=== PATIENT | male | born 1945 | race Caucasian/White ===

== ENCOUNTER 2017-05-09 09:44 | Inpatient (IN) | payer MEDICARE ==
[2017-05-09 10:12] LABS: #Basophils 0.1 thou/uL (0.0-0.2); #Eosinphils 0.2 thou/uL (0.0-0.7); #Lymphocytes 2.9 thou/uL (1.20-3.40); #Monocytes 0.4 thou/uL (0.11-0.59); #Neutrophils 4.6 thou/uL (1.40-6.50); %Basophils 0.7 % (0.0-1.0); %Eosinophils 1.9 % (0.0-10.0); %Lymphocytes 35.7 % (21.0-51.0); %Monocytes 4.9 % (0.0-10.0); Hematocrit 49.6 % (42.0-52.0); Mean Platelet Volume 7.4 fL (7.4-10.4); Red Blood Cell (RBC) Count 5.14 mill/uL (4.70-6.10); White Blood Cell (WBC) Count 8.1 thou/uL (4.8-10.8)
[2017-05-09 10:43] LABS: ALT (SGPT) 28 U/L (8-55); AST (SGOT) 28 U/L (5-34); Alkaline Phosphatase 64 U/L (40-150); Anion Gap 14 mmol/L (10-20); BUN (Urea Nitrogen) 20 mg/dL (8.4-25.7); Bilirubin, Total 0.9 mg/dL (0.2-1.2); CK (CPK) 309 U/L (30-200); Calc. Creatinine Clearance 0 mL/min (70-130); Carbon Dioxide 26 mmol/L (23-31); Chloride 101 mmol/L (98-107); Estimated GFR-MDRD 61; Globulin 3.4 g/dL (2.4-3.5); Lipase 34 U/L (8-78); Protein, Total 7.4 g/dL (5.8-8.1)
[2017-05-09 10:49] LABS: Troponin I 0.012 ng/mL (< 0.028)
--- NOTE | 2017-05-09 11:12 | RAD ---
UPRIGHT PORTABLE CHEST 1 VIEW: Date: 05/09/17 HISTORY: 72-year-old male with chest pain. FINDINGS: Borderline heart size. The lungs are clear. No pneumonia, edema, or pleural effusion. Bronchovascula r markings are slightly prominent bilaterally, probably chronic change. IMPRESSION: Borderline cardiomegaly with some scattered chronic changes. No acute intrathoracic disease. POS: [facility]
[2017-05-09] MEDS ORDERED: Dextrose 50% Abboject 50 ML SYRINGE SLOW IVP PRN (12:24)
[2017-05-09] MEDS ORDERED: Ondansetron HCl/PF 4 MG/2 ML Vial IVP PRN (12:24)
[2017-05-09] MEDS ORDERED: Mag-Al 1200 mg/1200 mg/30 ML UDCUP PO PRN (12:24)
[2017-05-09] MEDS ORDERED: Senokot 8.6 MG TAB PO PRN (12:24)
[2017-05-09] MEDS ORDERED: Dextrose 5% in Water 1,000 ML IV PRN (12:24)
[2017-05-09] MEDS ORDERED: Sodium Chloride 0.9% 1,000 ML IV SCH (12:30)
--- NOTE | 2017-05-09 13:06 | HP ---
REASON FOR ADMISSION: Chest pain. HISTORY OF PRESENTING ILLNESS: Patient gives history of having chest pains from last 2 weeks off and on. It was retrosternal pain radiating to left upper extremity. These were coming on irrespective of exertion. They would last for few minutes and go away. This morning, patient developed continuous chest pain which was 7-8/10 in intensity. He initially thought this was stress related, took 600 mg of aspirin. There was no relief. No complaints of cough or expectoration. No complaints of palpitations, PND or orthopnea. The patient is active in life. He states he has had a treadmill stress test done in Dr. Issac Polanco' office in the last 6 months or so. PAST MEDICAL AND SURGICAL HISTORY: History of diabetes mellitus type 2, hypertension, gout, glaucoma, and dyslipidemia. CURRENT MEDICATIONS: Patient is on aspirin 81 mg p.o. daily, indomethacin 50 mg twice daily p.r.n., Toprol-XL 100 mg p.o. daily, lisinopril 20 mg p.o. daily , allopurinol 100 mg p.o. daily, Lantus 60 units subcu daily, latanoprost eyedrops 1 GTT to both eyes at bedtime, Farxiga 5 mg p.o. daily, atorvastatin 40 mg p.o. at bedtime. ALLERGIES: No known drug allergies. PERSONAL HISTORY: Does not abuse alcohol or drugs. Quit smoking 30 years ago. FAMILY HISTORY: Mother is living and healthy. Father at the age of 94 years. He of old age. REVIEW OF SYSTEMS: The following complete review of systems was negative, unless otherwise mentioned in the HPI or below: Constitutional: Weight loss or gain, ability to conduct usual activities. Skin: Rash, itching. Eyes: Double vision, pain. ENT/Mouth: Nose bleeding, neck stiffness, pain, tenderness. Cardiovascular: Palpitations, dyspnea on exertion, orthopnea. Respiratory: Shortness of breath, wheezing, cough, hemoptysis, fever or night sweats. Gastrointestinal: Poor appetite, abdominal pain, heartburn, nausea, vomiting, constipation, or diarrhea. Genitourinary: Urgency, frequency, dysuria, nocturia. Musculoskeletal: Pain, swelling. Neurologic/Psychiatric: Anxiety, depression. Allergy/Immunologic: Skin rash, bleeding tendency. PHYSICAL EXAMINATION: GENERAL: The patient is a 72-year-old male who is currently not in any acute distress. VITAL SIGNS: Blood pressure on arrival was 180/86, currently 146/84, pulse 50 per minute, respiratory rate 20 per minute, temperature 97.8 degrees Fahrenheit , and saturating 97% on room air. NECK: Supple, no elevated JVD. EYES: Extraocular muscles intact. Pupils reacting to light. ORAL CAVITY: Mucous membranes are moist. No exudates or congestion. CARDIOVASCULAR SYSTEM: S1, S2 heard. Regular rhythm. RESPIRATORY SYSTEM: Air entry 2+ bilateral. No rales or rhonchi. ABDOMEN: Soft, bowel sounds heard. No tenderness, rigidity or guarding. EXTREMITIES: No peripheral edema or calf tenderness. VASCULAR SYSTEM: Peripheral pulses 1+ bilateral. No ischemic ulcerations or gangrene. CENTRAL NERVOUS SYSTEM: No gross focal deficits seen. Patient is alert, awake , oriented x3. PSYCHIATRIC SYSTEM: The patient's mood is euthymic. No hallucinations or delusions. IMAGING AND LABORATORY DATA: EKG done shows sinus bradycardia at 56 beats per minute. There are signs of LVH. There are questionable Q-waves in V1 and V2. White count of 8, hemoglobin and hematocrit 16 and 49, platelet count 219, MCV is 96 with 56% neutrophils. Electrolytes are stable. BUN 20, creatinine 1.1, and glucose 249. CK level is 309, CK-MB 7.4, troponin 0.01. BNP is 18, lipase is 34. Chest x-ray done shows borderline cardiomegaly with no acute infiltrate. CLINICAL IMPRESSION AND PLAN: The patient will be under observation on telemetry for chest pain, rule out acute coronary syndrome. The patient has multiple risk factors for acute coronary syndrome. He has had a treadmill stress test done 6 months back. I spoke to Dr. Rodriguez regarding the patient's current symptoms and his previous stress test. The plan is for a nuclear stress test plus 2 more sets of troponin to trend. He will be kept n.p.o. and normal saline at 70 mL per hour. We will also obtain echo with 2D Doppler for LV function. Likely patient needs a 2-day stress test. We will continue him on full dose aspirin along with Lipitor and a small dose of Lopressor since he is bradycardic and lisinopril 10 mg twice daily and nitro paste half inch q.8 hourly as well. Echo with 2D Doppler for LV function. We will continue to closely monitor him for any hemodynamic compromise. [email or web address]
[2017-05-09 13:22] LABS: Troponin I 0.075 ng/mL (< 0.028)
[2017-05-09] MEDS: Sodium Chloride 0.9% 1,000 ML IV SCH (13:56)
[2017-05-09] MEDS: Nitroglycerin 2% Ointment 1 INCH/1 GM Packet TOP SCH ×2 (13:57→20:22)
[2017-05-09 16:33] LABS: Troponin I 0.665 ng/mL (< 0.028)
[2017-05-09] MEDS: Atorvastatin Calcium 40 MG TAB PO SCH (20:13)
[2017-05-09] MEDS: Metoprolol Tartrate 25 MG TAB PO SCH (20:13)
[2017-05-09] MEDS: Famotidine 20 MG TAB PO SCH (20:13)
[2017-05-09] MEDS: Lisinopril 10 MG TAB PO SCH (20:15)
[2017-05-09] MEDS: HumaLOG 300 UNITS/3 ML VIAL SC PRN (20:28)
[2017-05-09] MEDS: Insulin Detemir 100 UNITS/ML 30 UNITS in Pre-Filled Syringe 1 EACH SC SCH (20:52)
[2017-05-10 04:30] LABS: #Eosinphils 0.1 thou/uL (0.0-0.7); #Lymphocytes 3.1 thou/uL (1.20-3.40); #Monocytes 0.8 thou/uL (0.11-0.59); #Neutrophils 8.6 thou/uL (1.40-6.50); %Basophils 0.4 % (0.0-1.0); %Eosinophils 0.7 % (0.0-10.0); %Lymphocytes 24.2 % (21.0-51.0); %Monocytes 6.6 % (0.0-10.0); Hematocrit 41.1 % (42.0-52.0); Mean Platelet Volume 7.6 fL (7.4-10.4); Red Blood Cell (RBC) Count 4.25 mill/uL (4.70-6.10); White Blood Cell (WBC) Count 12.6 thou/uL (4.8-10.8)
[2017-05-10 04:44] LABS: ALT (SGPT) 26 U/L (8-55); AST (SGOT) 71 U/L (5-34); Alkaline Phosphatase 52 U/L (40-150); Anion Gap 12 mmol/L (10-20); BUN (Urea Nitrogen) 17 mg/dL (8.4-25.7); Bilirubin, Total 0.8 mg/dL (0.2-1.2); Calc. Creatinine Clearance 99 mL/min (70-130); Carbon Dioxide 26 mmol/L (23-31); Chloride 103 mmol/L (98-107); Cholesterol 123 mg/dl (< 200 Desired); Estimated GFR-MDRD 73; Globulin 2.7 g/dL (2.4-3.5); LDL Cholesterol, Calculated 70 mg/dL; Protein, Total 6.3 g/dL (5.8-8.1)
[2017-05-10] MEDS: Nitroglycerin 2% Ointment 1 INCH/1 GM Packet TOP SCH ×3 (07:17→21:30)
[2017-05-10] MEDS ORDERED: Nitroglycerin 100MG/250ML BOT 250 ML ONE (09:23)
[2017-05-10] MEDS ORDERED: Verapamil 5 MG/2 ML VIAL ONE (09:24)
[2017-05-10] MEDS ORDERED: Heparin 10,000 UNITS/1 ML VIAL ONE (09:24)
[2017-05-10] MEDS: Aspirin 325 MG TAB PO SCH (10:37)
[2017-05-10] MEDS: Enoxaparin Sodium 40 MG/0.4 ML SYRINGE SC SCH (10:37)
[2017-05-10] MEDS ORDERED: Fentanyl 100 MCG/2 ML VIAL ONE (10:41)
[2017-05-10] MEDS ORDERED: Midazolam HCl 2 mg/2 ml Vial ONE (10:41)
[2017-05-10] MEDS ORDERED: Nitroglycerin 0.4 MG TAB (25 Tab Bottle) SL PRN (10:59)
[2017-05-10] MEDS ORDERED: traMADol HCl 50 MG TAB PO PRN (10:59)
[2017-05-10] MEDS ORDERED: Acetaminophen/Codeine 30-300mg Tablet PO PRN ×2 (10:59)
[2017-05-10] MEDS ORDERED: Sodium Chloride 0.9% 200 ML IV SCH (11:00)
--- NOTE | 2017-05-10 11:32 | NM ---
NUCLEAR MEDICINE CARDIAC GATED REST ONLY STUDY: Date: 05/09/17 HISTORY: Chest pain. Rest only study. COMPARISON: None. TECHNIQUE: Rest only study was performed after the intravenous administration of 27 mCi technetium-99m sestamib i. Ejection fraction was not calculated. Wall motion was not interrogated. There is a large scar of the inferior wall extending from the base to the apex. IMPRESSION: Large inferior wall scar. POS: [facility]
[2017-05-10] MEDS: Lisinopril 10 MG TAB PO SCH ×2 (11:34→20:14)
[2017-05-10] MEDS: Famotidine 20 MG TAB PO SCH ×2 (11:34→20:14)
[2017-05-10] MEDS: Metoprolol Tartrate 25 MG TAB PO SCH ×2 (11:35→20:15)
[2017-05-10] MEDS: Sodium Chloride 0.9% 1,000 ML IV SCH (11:36)
--- NOTE | 2017-05-10 11:43 | CON ---
DATE OF CONSULTATION: 05/10/2017 REFERRING PHYSICIAN: Dr. Porter. REASON FOR CONSULTATION: Chest pain. HISTORY OF PRESENT ILLNESS: Mr. Whitt is a 72-year-old gentleman who presented on 05/09/2017 compl aining of chest pain for 2 weeks duration off and on. This began with increased stress at home and began as a \\\\"knot\\\\" in the left parasternal region that did not radiate or have any associated sym ptoms. This lasted for a 2-week period of time, but then began suddenly increasing in intensity on the day of admission. He described it as a 7-8/10 in intensity. He felt as if heavy pressure was b eing exerted on this area and began radiating into his shoulder. It was not associated with shortne ss of breath, nausea, diaphoresis or other symptoms. He had a treadmill stress done in Dr. Eliane hyde in the past 6 months and that was reportedly negative. Over the course of his observation, he had serial enzymes drawn that were indeterminate initially an d moved into the positive range with an isolated troponin of 0.665. PAST MEDICAL HISTORY: 1. Type 2 diabetes mellitus. 2. Hypertension. 3. Gouty arthritis. 4. Glaucoma. 5. Dyslipidemia. PAST SURGICAL HISTORY: Negative. ALLERGIES: No known drug allergies. SOCIAL HISTORY: He denies illicit drug use or alcohol abuse. He is a former smoker, quitting 30 ye ars ago. FAMILY HISTORY: Negative with respect to premature atherosclerosis. CURRENT MEDICATIONS: 1. Aspirin 81 mg daily. 2. Indomethacin 50 mg b.i.d. 3. Toprol-XL 100 mg daily. 4. Lisinopril 20 mg daily. 5. Allopurinol 100 mg daily. 6. Lantus insulin 60 units subcu daily. 7. Latanoprost eyedrops 1 drop in both eyes at bedtime. 8. Farxiga 5 mg daily. 9. Atorvastatin 40 mg at bedtime. REVIEW OF SYSTEMS: As per history of present illness. Remainder of 12 system review is negative. PHYSICAL EXAMINATION: VITAL SIGNS: Blood pressure is 149/72, pulse 62 and regular, respiratory rate 18 and nonlabored, te mperature 98.4, oxygen saturations 94% on room air. GENERAL: This is a overweight 72-year-old gentleman, in no acute distress. He is alert a nd oriented x4. Answers questions appropriately. HEENT: Head was atraumatic, normocephalic. Pupils are equally, round, and reactive. Sclerae and c onjunctivae are clear. There are no oral lesions. NECK: Supple, no JVD, thyromegaly, carotid bruits. CHEST: Symmetrical inspiration and expiration. HEART: Regular in rate and rhythm. No murmur, S3, S4. PMI is nondisplaced, not enlarged. LUNGS: Clear to auscultation in all dempsey. No adventitious sounds appreciated. ABDOMEN: Soft, nontender, nondistended, without mass or organomegaly. Bowel sounds are present in all 4 quadrants. No flank bruits auscultated. EXTREMITIES: A 2+ pulses noted bilaterally in the upper and lower extremity. Strength is 5/5 bilat erally. There is no clubbing, cyanosis or edema. NEUROLOGIC: Grossly intact with no focal motor deficits appreciated. DATABASE: EKG reveals sinus rhythm with voltage criteria for LVH and secondary ST changes. There i s mild early repolarization. LABORATORY DATA: CBC reveals a white count of 12, H\\T\\H of 14 and 41, platelet count 206,000. Diff erential white blood cells normal. Red cell indices normocytic. Chemistries reveal normal electrol ytes, BUN and creatinine of 17 and 1.0. GFR is estimated at 73. Serial Cardiac enzymes show CK and CK-MB measurements are normal with a troponin crossing into the positive range of 0.665. BNP is no rmal at 18. Lipids are within acceptable ranges. ASSESSMENT: 1. Mzh-IU-[id number] elevation myocardial infarction. 2. Chest pain secondary to #1. 3. Hypertension, controlled. 4. Dyslipidemia, on therapy. 5. Type 2 diabetes mellitus, managed with oral agents and insulin. 6. Chronic kidney disease stage 2. RECOMMENDATIONS: 1. From a cardiac standpoint, he is stable and pain free currently. We have discussed conservative versus more invasive strategy for diagnosis and treatment and due to his body habitus and the likel ihood for a false or for artifactual changes in the inferior distribution, we have opted to move for alvarado with a more invasive strategy using diagnostic angiography plus or minus intervention as indica hoa. We discussed the risks, benefits and possible complications involved with the procedures and enmanuel rivera opts to move forward. He is scheduled for this morning. 2. We will make further recommendations based on the results of his coronary anatomy as visualized and I will continue to up titrate medications for presumed coronary artery disease. I appreciate the opportunity to participate.
--- NOTE | 2017-05-10 11:46 | PDOC.PN ---
- Subjective Encounter Start Date: 05/10/17 Encounter Start Time: 09:15 Subjective: no chest pain now or sob - Objective MAR Reviewed: Yes Vital Signs & Weight: Vital Signs (12 hours) Temp Pulse Resp BP BP Pulse Ox 05/10/17 11:34 173/77 H 05/10/17 08:00 98.4 F 62 18 05/10/17 07:21 98.4 F 62 18 149/72 H 93 L 05/10/17 03:48 98.7 F 55 L 16 120/59 L 93 L Weight Weight 233 lb 12.8 oz I&O: 05/09/17 05/10/17 05/11/17 06:59 06:59 06:59 Intake Total 2012 Balance 2012 Result Diagrams: 05/10/17 03:51 05/10/17 03:51 Additional Labs: Accuchecks 05/10/17 05/09/17 05/09/17 11:32 20:21 17:06 POC Glucose 143 H 251 H 231 H Phys Exam - Physical Examination HEENT: PERRLA, moist MMs Neck: no JVD, supple Respiratory: no wheezing, no rales Cardiovascular: RRR, no significant murmur Gastrointestinal: soft, non-tender, positive bowel sounds Musculoskeletal: no edema, pulses present Neurological: non-focal, moves all 4 limbs Psychiatric: A&O x 3 Dx/Plan (1) CAD (coronary artery disease) Code(s): I25.10 - ATHSCL HEART DISEASE OF [place] CORONARY ARTERY W/O ANG PCTRS Status: Acute Qualifiers: Coronary Disease-Associated Artery/Lesion type: [place] artery [place] vs. transplanted heart: [place] heart (2) Chest pain Code(s): R07.9 - CHEST PAIN, UNSPECIFIED Status: Acute Qualifiers: Chest pain type: chest pain due to myocardial ischemia (3) HTN (hypertension) Code(s): I10 - ESSENTIAL (PRIMARY) HYPERTENSION Status: Chronic Qualifiers: Hypertension type: essential hypertension Qualified Code(s): I10 - Essential (primary) hypertension (4) DM type 2 (diabetes mellitus, type 2) Status: Chronic Qualifiers: Diabetes mellitus complication status: with unspecified complications Diabetes mellitus mcfp insulin use: with terminal computer operator use Qualified Code(s) : E11.8 - Type 2 diabetes mellitus with unspecified complications; Z79.4 - director long term care (current) use of insulin; Z79.4 - director long term care (current) use of insulin; Z79.4 - director long term care (current) use of insulin; Z79.4 - director long term care (current) use of insulin (5) Dyslipidemia Code(s): E78.5 - HYPERLIPIDEMIA, UNSPECIFIED Status: Chronic (6) Obesity (BMI 30-39.9) Code(s): E66.9 - OBESITY, UNSPECIFIED Status: Chronic - Plan has multivessel cad for cabg -: currently chest pain free -: change status to inpatient -: is on asp, lipitor, BB and lisinopril -: will f/u * . Review of Systems - Medications/Allergies Allergies/Adverse Reactions: Allergies Allergy/AdvReac Type Severity Reaction Status Date / Time No Known Allergies Allergy Verified 05/09/17 12:38 Medications: Current Medications Acetaminophen (Tylenol) 650 mg PO Q4H PRN PRN Reason: Headache/Fever or Pain Acetaminophen/Codeine Phosphate (Tylenol #3) 1 tab PO Q4H PRN PRN Reason: Mild Pain (1-3) Acetaminophen/Codeine Phosphate (Tylenol #3) 2 tab PO Q4H PRN PRN Reason: Moderate Pain (4-6) Al Hydroxide/Mg Hydroxide (Maalox) 30 ml PO Q6H PRN PRN Reason: Heartburn or Indigestion Aspirin (Aspirin) 325 mg PO DAILY [facility] Last Admin: 05/10/17 10:37 Dose: Not Given Atorvastatin Calcium (Lipitor) 40 mg PO HS [facility] Last Admin: 05/09/17 20:13 Dose: 40 mg Dextrose/Water (Dextrose 50%) 25 gm SLOW IVP PRN PRN PRN Reason: Hypoglycemia Enoxaparin Sodium (Lovenox) 40 mg SC 0900 [facility] Last Admin: 05/10/17 10:37 Dose: Not Given Famotidine (Pepcid) 20 mg PO BID [facility] Last Admin: 05/10/17 11:34 Dose: 20 mg Glucagon (Glucagon) 1 mg IM PRN PRN PRN Reason: Hypoglycemia Dextrose/Water (D5w) 1,000 mls @ 0 mls/hr IV .Q0M PRN; As Directed PRN Reason: Hypoglycemia Insulin Detemir 30 units/ (Miscellaneous Medication) 0.3 mls @ 0 mls/hr SC BID [facility] Last Admin: 05/09/17 20:52 Dose: Not Given Sodium Chloride (Normal Saline 0.9%) 1,000 mls @ 70 mls/hr IV .[id number] [facility] Last Admin: 05/10/17 11:36 Dose: 1,000 mls Sodium Chloride (Normal Saline 0.9%) 200 mls @ 0 mls/hr IV ONE [facility] PRN Reason: As Directed Insulin Human Lispro (Humalog) 0 units SC .MODERATE SLIDING SC PRN PRN Reason: Moderate Correctional Scale Last Admin: 05/09/17 20:28 Dose: 6 unit Lisinopril (Zestril) 10 mg PO BID [facility] Last Admin: 05/10/17 11:34 Dose: 10 mg Metoprolol Tartrate (Lopressor) 12.5 mg PO BID [facility] Last Admin: 05/10/17 11:35 Dose: 12.5 mg Morphine Sulfate (Morphine) 2 mg SLOW IVP Q4H PRN PRN Reason: Chest Pain/BP Elevations Last Admin: 05/09/17 15:49 Dose: 2 mg Nitroglycerin (Nitro-Bid 2% Ointment) 0.5 inch TOP Q8HR [facility] Last Admin: 05/10/17 07:17 Dose: Not Given Nitroglycerin (Nitrostat) 0.4 mg SL Q5MIN PRN PRN Reason: Chest Pain Ondansetron HCl (Zofran) 4 mg IVP Q6H PRN PRN Reason: Nausea/Vomiting Senna (Senokot) 2 tab PO HSPRN PRN PRN Reason: Constipation Sodium Chloride (Flush - Normal Saline) 10 ml IVF Q12HR [facility] Last Admin: 05/10/17 11:35 Dose: 10 ml Sodium Chloride (Flush - Normal Saline) 10 ml IVF PRN PRN PRN Reason: Saline Flush Tramadol HCl (Ultram) 50 mg PO Q6H PRN PRN Reason: Moderate Pain (4-6)
[2017-05-10] MEDS ORDERED: Diazepam 5 MG TAB PO PRN (13:39)
[2017-05-10] MEDS ORDERED: Communication Order-Pharmacy FS SCH (13:39)
[2017-05-10] MEDS: Insulin Detemir 100 UNITS/ML 30 UNITS in Pre-Filled Syringe 1 EACH SC SCH ×2 (14:01→20:28)
[2017-05-10 14:19] LABS: PTT 27.6 SEC (22.9-36.1)
[2017-05-10 14:20] LABS: Prothrombin Time 13.7 SEC (12.0-14.7)
[2017-05-10 14:21] LABS: Hemoglobin A1c 7.2 % (4.0-6.0)
--- NOTE | 2017-05-10 14:47 | CON ---
DATE OF CONSULTATION: 05/10/2017 REASON FOR CONSULTATION: Evaluate the patient for coronary artery bypass grafting. ATTENDING PHYSICIAN: Dr. Harshad Rodriguez. CONSULTING PHYSICIAN: Dr. Harshad Rodriguez. HISTORY OF PRESENT ILLNESS: Mr. Whitt is a 72-year-old gentleman admitted to the hospital with non -ST elevation myocardial infarction. He has had pressure for over 2 weeks. The patient began to chamorro ve pain approximately 3-4 days ago and eventually presented to the Emergency Department. He was adm itted, his enzymes were checked and returned as a CK-MB of 7.4 and a peak troponin of 0.6. This mor milo, he was taken to the laborer operator and found to have severe 3-vessel disease with preserved left fletcher tricular function. I have been asked to see him and discuss coronary artery bypass grafting. PAST MEDICAL HISTORY: 1. Severe diabetes mellitus. 2. Hypertension. 3. Hyperlipidemia. 4. Obesity. 5. Arthritis. 6. Glaucoma. PAST SURGICAL HISTORY: Hernia repair. ALLERGIES: None. SOCIAL HISTORY: He is a former smoker - he quit over 30 years ago. He does not use alcohol or othe r drugs. CURRENT MEDICATIONS: 1. Aspirin 81 mg q. day. 2. Indomethacin 50 mg b.i.d. 3. Toprol-XL 100 mg q. day. 4. Lisinopril 20 mg q. day. 5. Allopurinol 100 mg q. day. 6. Lantus 60 units q. day. 7. Latanoprost eyedrops. 8. Farxiga 5 mg q. day. 9. Atorvastatin 40 mg at bedtime. REVIEW OF SYSTEMS: Ten-point review of systems is performed and is negative except as above. PHYSICAL EXAMINATION: GENERAL: This is a well-developed, well-nourished, moderately obese gentleman resting comfortably i n bed. VITAL SIGNS: Height is 5 feet 8 inches. Weight is 233 pounds. BSA is 2.26. Temperature is 98.0, pulse is 76 and regular, blood pressure is 151/73. HEENT: Sclerae nonicteric. Pupils are equal and round bilaterally. NECK: Supple, without bruit. CHEST: Has bilateral wheezes. There is no rhonchi. No rales. HEART: Rhythm is regular, without murmur. ABDOMEN: Soft and nontender. EXTREMITIES: No cyanosis, clubbing or edema. VASCULAR: He has palpable carotid, radial, femoral, dorsalis pedis and posterior tibial pulses bila terally. VENOUS: There are no venous varicosities or venous stasis changes. PSYCHIATRIC: The patient is awake, alert and oriented to person, place and time. LABORATORY DATA: Of note, his creatinine is 1.18. Most recent glucose is 231. Hemoglobin is 14.7 and platelet count is 206,000. Chest x-ray is clear, has clear lung dempsey bilaterally. ASSESSMENT AND PLAN: This is a 72-year-old obese gentleman resting comfortably in bed now without s ymptoms. He has 3-vessel disease, status post non-ST elevation myocardial infarction. I have discussed coronary artery bypass grafting with him. Potential target include an LAD in 2 sep arate places, a high diagonal, OM, PDA and PL branch. He is agreeable to proceed. We have schedule d him for .
[2017-05-10] MEDS ORDERED: Iopamidol 370 76% 50 ML VIAL FS ONE (15:30)
[2017-05-10] MEDS ORDERED: Iopamidol 370 76% 100 ML VIAL ONE (15:30)
[2017-05-10] MEDS: Atorvastatin Calcium 40 MG TAB PO SCH (20:14)
[2017-05-10] MEDS: Acetaminophen 325 MG TAB PO PRN (21:30)
[2017-05-11] MEDS: Sodium Chloride 0.9% 1,000 ML IV SCH ×2 (01:33→08:00)
[2017-05-11] MEDS: Acetaminophen 325 MG TAB PO PRN (05:25)
[2017-05-11] MEDS: Nitroglycerin 2% Ointment 1 INCH/1 GM Packet TOP SCH (05:26)
[2017-05-11] MEDS: Aspirin 325 MG TAB PO SCH (08:01)
[2017-05-11] MEDS: Enoxaparin Sodium 40 MG/0.4 ML SYRINGE SC SCH (08:01)
[2017-05-11] MEDS: Metoprolol Tartrate 25 MG TAB PO SCH ×2 (08:02→20:25)
[2017-05-11] MEDS: Famotidine 20 MG TAB PO SCH ×2 (08:02→20:26)
[2017-05-11] MEDS: Lisinopril 10 MG TAB PO SCH ×2 (08:02→20:27)
[2017-05-11] MEDS: Insulin Detemir 100 UNITS/ML 30 UNITS in Pre-Filled Syringe 1 EACH SC SCH ×2 (08:03→20:28)
--- NOTE | 2017-05-11 09:12 | PDOC.PN ---
- Subjective Encounter Start Date: 05/11/17 Encounter Start Time: 07:00 Subjective: no chest or palp -: has mild sob - Objective MAR Reviewed: Yes Vital Signs & Weight: Vital Signs (12 hours) Temp Pulse Resp BP BP Pulse Ox 05/11/17 08:02 123/67 05/11/17 07:53 98.2 F 100 20 123/67 93 L 05/11/17 06:33 75 16 92 L 05/11/17 04:17 98.8 F 76 18 114/55 L 92 L 05/10/17 23:33 80 18 96 Weight Weight 238 lb I&O: 05/10/17 05/11/17 05/12/17 06:59 06:59 06:59 Intake Total 2012 2219 Balance 2012 2219 Result Diagrams: 05/10/17 03:51 05/10/17 03:51 Additional Labs: Accuchecks 05/11/17 05/10/17 05/10/17 05:55 19:53 16:54 POC Glucose 134 H 183 H 152 H 05/10/17 11:32 POC Glucose 143 H Phys Exam - Physical Examination HEENT: PERRLA, moist MMs Neck: no JVD, supple Respiratory: no wheezing, no rales Cardiovascular: RRR, no significant murmur Gastrointestinal: soft, non-tender, positive bowel sounds Musculoskeletal: no edema, pulses present Neurological: non-focal, moves all 4 limbs Psychiatric: A&O x 3 Dx/Plan (1) CAD (coronary artery disease) Code(s): I25.10 - ATHSCL HEART DISEASE OF [place] CORONARY ARTERY W/O ANG PCTRS Status: Acute Qualifiers: Coronary Disease-Associated Artery/Lesion type: [place] artery [place] vs. transplanted heart: [place] heart (2) Chest pain Code(s): R07.9 - CHEST PAIN, UNSPECIFIED Status: Acute Qualifiers: Chest pain type: chest pain due to myocardial ischemia (3) HTN (hypertension) Code(s): I10 - ESSENTIAL (PRIMARY) HYPERTENSION Status: Chronic Qualifiers: Hypertension type: essential hypertension Qualified Code(s): I10 - Essential (primary) hypertension (4) DM type 2 (diabetes mellitus, type 2) Status: Chronic Qualifiers: Diabetes mellitus complication status: with unspecified complications Diabetes mellitus intermodal customer service insulin use: with intermediate use Qualified Code(s) : E11.8 - Type 2 diabetes mellitus with unspecified complications; Z79.4 - [facility] (current) use of insulin; Z79.4 - manager terminal (current) use of insulin; Z79.4 - [facility] (current) use of insulin; Z79.4 - [facility] (current) use of insulin (5) Dyslipidemia Code(s): E78.5 - HYPERLIPIDEMIA, UNSPECIFIED Status: Chronic (6) Obesity (BMI 30-39.9) Code(s): E66.9 - OBESITY, UNSPECIFIED Status: Chronic - Plan for CABG in am -: dc iv fluids, has mild sob on exertion -: is on asp, lipitor and lopressor -: levemir bid -: has already seen cabg video, to amb in hallway * . Review of Systems - Medications/Allergies Allergies/Adverse Reactions: Allergies Allergy/AdvReac Type Severity Reaction Status Date / Time No Known Allergies Allergy Verified 05/09/17 12:38 Medications: Current Medications Acetaminophen (Tylenol) 650 mg PO Q4H PRN PRN Reason: Headache/Fever or Pain Last Admin: 05/11/17 05:25 Dose: 650 mg Acetaminophen/Codeine Phosphate (Tylenol #3) 1 tab PO Q4H PRN PRN Reason: Mild Pain (1-3) Acetaminophen/Codeine Phosphate (Tylenol #3) 2 tab PO Q4H PRN PRN Reason: Moderate Pain (4-6) Al Hydroxide/Mg Hydroxide (Maalox) 30 ml PO Q6H PRN PRN Reason: Heartburn or Indigestion Albuterol/Ipratropium (Duoneb) 3 ml NEB [id number] [facility] Last Admin: 05/11/17 06:33 Dose: 3 ml Aspirin (Aspirin) 325 mg PO DAILY [facility] Last Admin: 05/11/17 08:01 Dose: 325 mg Atorvastatin Calcium (Lipitor) 40 mg PO HS [facility] Last Admin: 05/10/17 20:14 Dose: 40 mg Dextrose/Water (Dextrose 50%) 25 gm SLOW IVP PRN PRN PRN Reason: Hypoglycemia Diazepam (Valium) 5 mg PO HSPRN PRN PRN Reason: Insomnia Enoxaparin Sodium (Lovenox) 40 mg SC 0900 [facility] Last Admin: 05/11/17 08:01 Dose: 40 mg Famotidine (Pepcid) 20 mg PO BID [facility] Last Admin: 05/11/17 08:02 Dose: 20 mg Glucagon (Glucagon) 1 mg IM PRN PRN PRN Reason: Hypoglycemia Dextrose/Water (D5w) 1,000 mls @ 0 mls/hr IV .Q0M PRN; As Directed PRN Reason: Hypoglycemia Insulin Detemir 30 units/ (Miscellaneous Medication) 0.3 mls @ 0 mls/hr SC BID [facility] Last Admin: 05/11/17 08:03 Dose: 0.3 mls Sodium Chloride (Normal Saline 0.9%) 1,000 mls @ 70 mls/hr IV .[id number] [facility] Last Admin: 05/11/17 08:00 Dose: Not Given Insulin Human Lispro (Humalog) 0 units SC .MODERATE SLIDING SC PRN PRN Reason: Moderate Correctional Scale Last Admin: 05/09/17 20:28 Dose: 6 unit Lisinopril (Zestril) 10 mg PO BID [facility] Last Admin: 05/11/17 08:02 Dose: 10 mg Metoprolol Tartrate (Lopressor) 12.5 mg PO BID [facility] Last Admin: 05/11/17 08:02 Dose: 12.5 mg Miscellaneous Information (Communication Order-Pharmacy) 1 each FS ASDIR [facility] Morphine Sulfate (Morphine) 2 mg SLOW IVP Q4H PRN PRN Reason: Chest Pain/BP Elevations Last Admin: 05/09/17 15:49 Dose: 2 mg Nitroglycerin (Nitro-Bid 2% Ointment) 0.5 inch TOP Q8HR [facility] Last Admin: 05/11/17 05:26 Dose: 0.5 inch Nitroglycerin (Nitrostat) 0.4 mg SL Q5MIN PRN PRN Reason: Chest Pain Ondansetron HCl (Zofran) 4 mg IVP Q6H PRN PRN Reason: Nausea/Vomiting Senna (Senokot) 2 tab PO HSPRN PRN PRN Reason: Constipation Sodium Chloride (Flush - Normal Saline) 10 ml IVF Q12HR [facility] Last Admin: 05/11/17 08:03 Dose: Not Given Sodium Chloride (Flush - Normal Saline) 10 ml IVF PRN PRN PRN Reason: Saline Flush Tramadol HCl (Ultram) 50 mg PO Q6H PRN PRN Reason: Moderate Pain (4-6)
[2017-05-11] MEDS: HumaLOG 300 UNITS/3 ML VIAL SC PRN ×2 (12:11→16:57)
--- NOTE | 2017-05-11 13:26 | PDOC.CTH ---
Cardiology Progress Note - Subjective Doing well overnight. No reported CP or other CV symptoms today. Tolerating medical therapy. Questions answered regarding upcoming CABG. ROS otherwise negative. - Objective Vital Signs Temp Pulse Resp BP BP Pulse Ox 05/11/17 11:49 98.1 F 70 18 108/66 94 L 05/11/17 08:02 123/67 05/11/17 08:00 98.2 F 100 20 93 L 05/11/17 07:53 98.2 F 100 20 123/67 93 L 05/11/17 06:33 75 16 92 L 05/11/17 04:17 98.8 F 76 18 114/55 L 92 L Weight 238 lb 05/10/17 05/11/17 05/12/17 06:59 06:59 06:59 Intake Total 2012 2219 Balance 2012 2219 - Physical Examination General/Neuro: alert & oriented x3, NAD Neck: carotid US brisk, no JVD present Lungs: CTA, unlabored respirations Heart: PMI normal, RRR Abdomen: no HSM, NT/ND, soft Extremities: other: (2+ pulses, no edema) Other PE findings: Neuro: no focal motor defs - Telemetry Telemetry Rhythm: sinus rhythm - Labs Result Diagrams: 05/10/17 03:51 05/10/17 03:51 Troponin/CKMB CK-MB (CK-2) 7.4 ng/mL (0-6.6) H* 05/09/17 09:58 Troponin I 0.665 ng/mL (< 0.028) H* 05/09/17 15:56 - Assessment/Plan 1. CAD, multivessel: CABG planned for tomorrow with Dr. Bowers. Titrate meds as tolerated. 2. T2DM: continue medical management. 3. dyslipidemia: statin to continue. 4. HTN, controlled. Continue current medical therapy.
[2017-05-11] MEDS: Atorvastatin Calcium 40 MG TAB PO SCH (20:27)
[2017-05-12] MEDS ORDERED: CEFAZOLIN/Water 2 GM/20 ML SYRINGE SLOW IVP SCH (04:30)
[2017-05-12] MEDS: Enoxaparin Sodium 40 MG/0.4 ML SYRINGE SC SCH (06:13)
[2017-05-12] MEDS: Metoprolol Tartrate 25 MG TAB PO SCH (06:15)
[2017-05-12] MEDS: Lisinopril 10 MG TAB PO SCH (06:16)
[2017-05-12] MEDS: Famotidine 20 MG TAB PO SCH (08:06)
[2017-05-12] MEDS: Insulin Detemir 100 UNITS/ML 30 UNITS in Pre-Filled Syringe 1 EACH SC SCH (08:06)
[2017-05-12] MEDS: Aspirin 325 MG TAB PO SCH (08:06)
[2017-05-12] MEDS ORDERED: Heparin 10,000 UNITS/1 ML VIAL 30,000 UNITS in Sodium Chloride 0.9% 1,000 ML FS SCH (08:45)
[2017-05-12] MEDS ORDERED: CEFAZOLIN/Water 2 GM/20 ML SYRINGE ONE (10:39)
[2017-05-12] MEDS ORDERED: Fentanyl 250 MCG/5 ML VIAL ONE (11:28)
[2017-05-12] MEDS ORDERED: Midazolam HCl 5 mg/5 ml Vial ONE (11:29)
[2017-05-12] MEDS ORDERED: Midazolam HCl 2 mg/2 ml Vial ONE (11:59)
[2017-05-12] MEDS ORDERED: Vecuronium 10 MG VIAL ONE (12:48)
[2017-05-12] MEDS ORDERED: Propofol 200 MG/20 ML VIAL ONE (12:48)
--- NOTE | 2017-05-12 13:01 | PDOC.PN ---
- Subjective Encounter Start Date: 05/12/17 Encounter Start Time: 12:59 Patient seen and examined. No new complaints. No overnight events - Objective MAR Reviewed: Yes Vital Signs & Weight: Vital Signs (12 hours) Temp Pulse Resp BP BP Pulse Ox 05/12/17 08:00 98.2 F 70 14 92 L 05/12/17 07:56 98.2 F 70 14 122/75 92 L 05/12/17 06:16 117/67 05/12/17 06:10 81 16 93 L 05/12/17 04:00 98.2 F 67 16 117/67 92 L Weight Weight 238 lb I&O: 05/11/17 05/12/17 05/13/17 06:59 06:59 06:59 Intake Total 2220 2210 Output Total 4410 Balance 2220 -2200 Result Diagrams: 05/10/17 03:51 05/10/17 03:51 Additional Labs: Accuchecks 05/12/17 05/11/17 05/11/17 06:14 20:12 16:25 POC Glucose 174 H 198 H 175 H Phys Exam - Physical Examination Constitutional: NAD HEENT: PERRLA Neck: no JVD Respiratory: no rales Cardiovascular: no significant murmur Gastrointestinal: non-tender Musculoskeletal: pulses present Neurological: moves all 4 limbs Psychiatric: A&O x 3 Dx/Plan (1) CAD (coronary artery disease) Code(s): I25.10 - ATHSCL HEART DISEASE OF [place] CORONARY ARTERY W/O ANG PCTRS Status: Acute Qualifiers: Coronary Disease-Associated Artery/Lesion type: [place] artery [place] vs. transplanted heart: [place] heart Comment: multivessel disease cabg- 05/12 (2) Chest pain Code(s): R07.9 - CHEST PAIN, UNSPECIFIED Status: Acute Qualifiers: Chest pain type: chest pain due to myocardial ischemia (3) DM type 2 (diabetes mellitus, type 2) Status: Chronic Qualifiers: Diabetes mellitus complication status: with unspecified complications Diabetes mellitus termite control servicer insulin use: with [facility] use Qualified Code(s) : E11.8 - Type 2 diabetes mellitus with unspecified complications; Z79.4 - roasterman (current) use of insulin; Z79.4 - longterm (current) use of insulin; Z79.4 - longterm (current) use of insulin; Z79.4 - roasterman (current) use of insulin (4) Dyslipidemia Code(s): E78.5 - HYPERLIPIDEMIA, UNSPECIFIED Status: Chronic (5) HTN (hypertension) Code(s): I10 - ESSENTIAL (PRIMARY) HYPERTENSION Status: Chronic Qualifiers: Hypertension type: essential hypertension Qualified Code(s): I10 - Essential (primary) hypertension (6) Obesity (BMI 30-39.9) Code(s): E66.9 - OBESITY, UNSPECIFIED Status: Chronic - Plan * f/u cvts and cardiology plan * cont current mx
[2017-05-12] MEDS ORDERED: Insulin Regular 300 UNITS/3 ML VIAL ONE (15:01)
[2017-05-12] MEDS ORDERED: Albumin 5% 0 ML ONE (15:41)
[2017-05-12] MEDS ORDERED: Hetastarch 6% 500 ML 500 ML IVPB PRN (16:51)
[2017-05-12] MEDS ORDERED: Guaifenesin DM 100-10/5 ML UDCUP PO PRN (16:51)
[2017-05-12] MEDS ORDERED: hydrALAZINE 20 MG/ML VIAL SLOW IVP PRN (16:51)
[2017-05-12] MEDS ORDERED: Mag-Al 1200 mg/1200 mg/30 ML UDCUP PO PRN (16:51)
[2017-05-12] MEDS ORDERED: Post-Op Insulin Drip Protocol IVPB ONE (16:51)
[2017-05-12] MEDS ORDERED: Bisacodyl 5 MG TAB PO PRN (16:51)
[2017-05-12] MEDS ORDERED: Ondansetron HCl/PF 4 MG/2 ML Vial IVP PRN (16:51)
[2017-05-12] MEDS ORDERED: niCARdipine HCl 25 MG in Sodium Chloride 0.9% 250 ML 240 ML IVPB PRN (16:51)
[2017-05-12] MEDS ORDERED: Nitroglycerin 50 MG/250 ML BOT 250 ML IVPB PRN (16:51)
[2017-05-12] MEDS ORDERED: Bisacodyl 10 MG SUPP PR PRN (16:51)
[2017-05-12] MEDS ORDERED: Potassium Chloride 20 MEQ/100 ML PREMIX BAG IVPB PRN (16:51)
[2017-05-12] MEDS ORDERED: HYDROcodone/Acetaminophen 5/325 mg Tablet PO PRN ×2 (16:51)
[2017-05-12] MEDS ORDERED: Promethazine HCl 25 MG/ML VIAL IM PRN (16:51)
[2017-05-12] MEDS ORDERED: Acetaminophen 325 MG TAB PO PRN (16:51)
[2017-05-12] MEDS ORDERED: Magnesium 2 GM/NS 0.9% 50 ML 2 GM in Premix Bag 1 BAG IVPB SCH (17:00)
[2017-05-12] MEDS ORDERED: Dextrose 50% Abboject 50 ML SYRINGE SLOW IVP PRN (17:05)
[2017-05-12] MEDS ORDERED: Dextrose 5% in Water 1,000 ML IV PRN (17:05)
[2017-05-12 17:11] LABS: #Eosinphils 0.2 thou/uL (0.0-0.7); #Lymphocytes 2.9 thou/uL (1.20-3.40); #Monocytes 1.3 thou/uL (0.11-0.59); #Neutrophils 14.9 thou/uL (1.40-6.50); %Basophils 0.1 % (0.0-1.0); %Eosinophils 1.3 % (0.0-10.0); %Monocytes 6.5 % (0.0-10.0); Hematocrit 41.4 % (42.0-52.0); Mean Platelet Volume 7.4 fL (7.4-10.4); Red Blood Cell (RBC) Count 4.23 mill/uL (4.70-6.10); White Blood Cell (WBC) Count 19.3 thou/uL (4.8-10.8)
[2017-05-12] MEDS: D5 1/2 NS w/20 mEq KCL 1,000 ML IV SCH (17:15)
[2017-05-12 17:16] LABS: Oxyhemoglobin 94.6 % (94.0-97.0); Sodium 141 mmol/L (135-148)
[2017-05-12 17:17] LABS: Mechanical Tidal Volume 500 ml; Mode PSIMV; Modified Allen's Test NOT DONE; Pressure Support 10 cmH2O; Vent YES
[2017-05-12 17:33] LABS: Anion Gap 7 mmol/L (10-20); BUN (Urea Nitrogen) 11 mg/dL (8.4-25.7); Calc. Creatinine Clearance 123 mL/min (70-130); Calcium 7.9 mg/dL (7.8-10.44); Carbon Dioxide 26 mmol/L (23-31); Chloride 108 mmol/L (98-107); Estimated GFR-MDRD Greater than 90
[2017-05-12 17:34] LABS: PTT 27.9 SEC (22.9-36.1); Prothrombin Time 16.4 SEC (12.0-14.7)
[2017-05-12] MEDS: Ketorolac Tromethamine 30 MG/ML VIAL IVP SCH ×2 (17:35→22:57)
[2017-05-12] MEDS: Fentanyl 100 MCG/2 ML VIAL SLOW IVP PRN ×2 (17:40→23:56)
[2017-05-12] MEDS ORDERED: Morphine 10 MG/ML VIAL SLOW IVP PRN (17:43)
[2017-05-12] MEDS: Norepinephrine 8 MG/0.9% NS 250 ML IVPB PRN (18:32)
--- NOTE | 2017-05-12 18:33 | RAD ---
AP VIEW OF THE CHEST: 05/12/17 INDICATION: Status post open heart surgery. COMPARISON: Prior dated 05/09/17. FINDINGS: Since the comparison examination there has been interval performance of a midline sternotomy. Patien t is intubated with a new right subclavian central venous catheter and mediastinal drain and left si ded thoracostomy catheter. There is moderate cardiomegaly and mild pulmonary vascular congestion. Th ere is a small left pleural effusion. No pneumothorax is evident. IMPRESSION: Postoperative chest. No pneumothorax. POS: [facility]
[2017-05-12] MEDS: CEFAZOLIN/Water 2 GM/20 ML SYRINGE SLOW IVP SCH (18:58)
[2017-05-12 20:56] LABS: Oxyhemoglobin 96.5 % (94.0-97.0); Sodium 140 mmol/L (135-148)
[2017-05-12 20:58] LABS: Pressure Support 5 cmH2O; Vent YES
[2017-05-12 20:59] LABS: Mode CPAP
[2017-05-12] MEDS ORDERED: Famotidine/PF 20 mg/2ml Vial SLOW IVP SCH (21:00)
[2017-05-12 22:48] LABS: Hematocrit 40.1 % (42.0-52.0)
[2017-05-13] MEDS: Fentanyl 100 MCG/2 ML VIAL SLOW IVP PRN ×2 (01:50→09:23)
[2017-05-13] MEDS: CEFAZOLIN/Water 2 GM/20 ML SYRINGE SLOW IVP SCH ×2 (02:39→10:59)
[2017-05-13 04:08] LABS: #Lymphocytes 2.1 thou/uL (1.20-3.40); #Neutrophils 10.6 thou/uL (1.40-6.50); %Basophils 0.2 % (0.0-1.0); %Eosinophils 0.1 % (0.0-10.0); %Lymphocytes 15.2 % (21.0-51.0); %Monocytes 7.5 % (0.0-10.0); Hematocrit 34.7 % (42.0-52.0); Mean Platelet Volume 7.8 fL (7.4-10.4); Red Blood Cell (RBC) Count 3.56 mill/uL (4.70-6.10); White Blood Cell (WBC) Count 13.8 thou/uL (4.8-10.8)
[2017-05-13 04:22] LABS: Anion Gap 9 mmol/L (10-20); BUN (Urea Nitrogen) 14 mg/dL (8.4-25.7); Calc. Creatinine Clearance 117 mL/min (70-130); Calcium 8.2 mg/dL (7.8-10.44); Carbon Dioxide 26 mmol/L (23-31); Chloride 108 mmol/L (98-107); Estimated GFR-MDRD 87
[2017-05-13] MEDS: Ketorolac Tromethamine 30 MG/ML VIAL IVP SCH ×4 (05:05→23:53)
--- NOTE | 2017-05-13 06:22 | OP ---
DATE OF OPERATION: 05/12/2017 PREOPERATIVE DIAGNOSES: Coronary artery disease/status post [id number] myocardial/hypertensio n/hyperlipidemia/diabetes mellitus/obesity. POSTOPERATIVE DIAGNOSES: Coronary artery disease/status post [id number] myocardial/hypertensi on/hyperlipidemia/diabetes mellitus/obesity. PROCEDURE PERFORMED: Coronary artery bypass grafting x5: 1. Left internal mammary artery to 1.25 mm distal LAD - good conduit and small target. 2. Reverse saphenous vein to 2.0 mm ramus - good conduit and target. 3. Reverse saphenous vein to 2.5 mm OM - good conduit and target. 4. Reverse saphenous vein to 1.25 mm diagonal #1 - good conduit and small target. 5. Reverse saphenous vein to 1.25 mm diffusely diseased PDA distally - good conduit with diffusely diseased target. SURGEON: Hasmukh Bowers MD and Issac Hong MD ANESTHESIA: General endotracheal - Dr. Jean Marie Leiva. PUMP TIME: 78 minutes. CROSS-CLAMP TIME: 44 minutes. LOW CORE TEMP: 32 degree Celsius. BLANKET INSPECTOR: Margaret . DRAINS: 24-Italian chest tubes x2. DRIPS: None. TRANSFUSIONS: None. DESCRIPTION OF PROCEDURE: After consent was obtained, the patient was brought to the operating room and placed in the supine position on the operating room table. Appropriate anesthetic monitor was placed and general endotracheal anesthesia induced. Chest, abdomen, and legs were prepped and drape d in usual sterile fashion. The greater saphenous vein was harvested from groin to thigh using an e ndoscopic technique on the left. Wounds were closed in layers. A median sternotomy was performed. The left internal mammary artery was harvested as a pedicle graft. The patient was systemically he parinized. Distal pedicle was divided and infused with papaverine. Thymic fat and pericardium were divided with electrocautery. Pericardial stay sutures were placed. Aortic and atrial cannulation was performed. After adequate heparinization, retrograde prime was performed and the patient was pl aced on cardiopulmonary bypass. Distal targets were marked. Aortic cross-clamp was applied and ant egrade sanguineous cardioplegic arrest obtained. A 1200 mL of cold [place] cardioplegia was given. The topical cold solution was used. The reversed saphenous vein was anastomosed to the PDA in end -to-side fashion with running 7-0 Prolene suture. Anastomosis was tested and was hemostatic. The r eversed saphenous vein was anastomosed to the OM in end-to-side fashion with running 7-0 Prolene sut ure. Anastomosis was tested and was hemostatic. The reversed saphenous vein was anastomosed to the ramus in end-to-side fashion with running 7-0 Prolene suture. Anastomosis was tested and was hemos tatic. The reversed saphenous vein was anastomosed to the diagonal in end-to-side fashion with runn ing 7-0 Prolene suture. Anastomosis was tested and was hemostatic. Mammary artery was brought thro ugh a window in the pericardium and anastomosed to the distal LAD almost to the apex with running 7- 0 Prolene suture. Anastomosis was tested and was hemostatic. On release of the mammary clamp, ther e was good hooding in the anastomosis and good distal flow. Pedicle was secured with an interrupted 6-0 Prolene suture. Cross-clamp was removed and partial occluding clamp was placed. Saphenous vei ns to the PDA, ramus, and OM were anastomosed individual punch sites. Saphenous vein to the diagona l was anastomosed to the ramus julian. Partial occluding clamp was removed and grafts deaired. Anast omoses were inspected for hemostasis, which was good. The patient was warmed and weaned from cardio pulmonary bypass. After resumption of sinus rhythm, good hemodynamics, temperature greater than 36. 5 bypass was discontinued. Transfusions were given. Protamine was administered. Decannulation was performed and pursestring sutures secured. After adequate hemostasis had been obtained, 24-Italian chest tubes were placed in the mediastinum. Vancomycin paste was placed on the sternal edges. Agai n, hemostasis was ensured. The sternum was closed with #7 wire. The sternum was treated with plate let-rich plasma and wires twisted. Wounds were irrigated, treated with platelet-poor plasma and melani sed in multiple layers. The patient tolerated the procedure well and was transferred to the intensi ve care unit in stable but critical condition.
--- NOTE | 2017-05-13 08:22 | RAD ---
CHEST ONE VIEW: HISTORY: Heart surgery. Follow-up. COMPARISON: 05/12/2017 FINDINGS: Cardiac silhouette remains magnified and enlarged. Pulmonary vasculature is upper limits of normal. Mediastinum is midline with postoperative changes and right subclavian central venous catheter unc hanged in position. Left thoracostomy tube remains in place. Endotracheal catheter is no longer vi sible. Atelectasis at the lung bases has improved slightly. residential program director leads overlie the ches t. IMPRESSION: 1. Improved aeration of the lung bases. 2. Interval extubation. 3. Otherwise stable postoperative appearance of the chest. POS: [facility]
[2017-05-13] MEDS: Magnesium 2 GM/NS 0.9% 50 ML 2 GM in Premix Bag 1 BAG IVPB SCH (08:35)
[2017-05-13] MEDS ORDERED: Allopurinol 300 MG TAB PO SCH (09:00)
[2017-05-13] MEDS: Famotidine 20 MG TAB PO SCH ×2 (09:33→20:46)
[2017-05-13] MEDS: Aspirin 325 MG TAB PO SCH (09:34)
[2017-05-13] MEDS ORDERED: FLU VACC TS2017-18 (>65YR) 0.5 ML SYRINGE IM ONE (10:00)
[2017-05-13 10:35] LABS: Oxyhemoglobin 96.4 % (94.0-97.0); Sodium 140 mmol/L (135-148)
[2017-05-13 10:35] LABS: Oxyhemoglobin 97.1 % (94.0-97.0); Sodium 140 mmol/L (135-148)
[2017-05-13 10:36] LABS: Base Excess -1.1 mEq/L (0 (+/- 2.5)); O2 Content (venous) 14.2 VOL% (12.5-17.5); pH (venous) 7.322 (7.35-7.45)
[2017-05-13 10:36] LABS: Base Excess 0.8 mEq/L (0 (+/- 2.5)); O2 Content (venous) 15.2 VOL% (12.5-17.5); pH (venous) 7.343 (7.35-7.45)
[2017-05-13 10:36] LABS: Oxyhemoglobin 97.2 % (94.0-97.0); Sodium 140 mmol/L (135-148)
[2017-05-13] MEDS: Allopurinol 100 MG TAB PO SCH (10:50)
[2017-05-13 10:59] LABS: Mode OR ABG; Vent YES
[2017-05-13 11:00] LABS: Mode OR ABG; Vent YES
[2017-05-13 11:05] LABS: Base Excess 0.7 mEq/L (0 (+/- 2.5)); O2 Content (venous) 14.9 VOL% (12.5-17.5); pH (venous) 7.358 (7.35-7.45)
[2017-05-13 11:11] LABS: Mode OR ABG; Vent YES
[2017-05-13] MEDS ORDERED: Amiodarone 200 MG TAB PO SCH ×2 (11:30→21:00)
[2017-05-13] MEDS: Insulin Regular 300 UNITS/3 ML VIAL SC PRN ×3 (11:51→22:11)
[2017-05-13 12:32] LABS: Base Excess 1.1 mEq/L (0 (+/- 2.5)); O2 Content (venous) 11.5 VOL% (12.5-17.5); pH (venous) 7.362 (7.35-7.45)
--- NOTE | 2017-05-13 13:16 | PDOC.PN ---
- Subjective Encounter Start Date: 05/13/17 Encounter Start Time: 13:14 extubated doing well no n/v pain control in adequate no f/c - Objective MAR Reviewed: Yes Vital Signs & Weight: Vital Signs (12 hours) Temp Pulse Ox 05/13/17 04:00 98.4 F 05/13/17 02:39 97 Weight Weight 234 lb 2.095 oz Most Recent Monitor Data Heart Rate from ECG 99 NIBP 97/63 NIBP BP-Mean 75 Respiration from ECG 22 SpO2 97 I&O: 05/12/17 05/13/17 05/14/17 06:59 06:59 06:59 Intake Total 2210 1698.7 Output Total 4410 1185 Balance -2200 513.7 Result Diagrams: 05/13/17 03:26 05/13/17 03:30 Additional Labs: Accuchecks 05/13/17 05/13/17 05/13/17 11:46 06:21 05:01 POC Glucose 265 H 132 H 129 H 05/13/17 05/13/17 05/13/17 04:07 03:01 02:02 POC Glucose 97 128 H 122 H 05/13/17 05/12/17 05/12/17 01:06 23:59 23:01 POC Glucose 139 H 173 H 182 H 05/12/17 05/12/17 05/12/17 22:06 21:11 20:06 POC Glucose 177 H 182 H 214 H 05/12/17 05/12/17 05/12/17 18:47 17:01 16:41 POC Glucose 165 H 162 H 165 H 05/12/17 05/12/17 05/12/17 15:37 14:39 14:08 POC Glucose 165 H 158 H 144 H Phys Exam - Physical Examination Constitutional: NAD HEENT: PERRLA Neck: no nodes Respiratory: no wheezing lt side chest tube Cardiovascular: no significant murmur Gastrointestinal: soft, non-tender Musculoskeletal: pulses present Neurological: moves all 4 limbs Psychiatric: A&O x 3 Dx/Plan (1) CAD (coronary artery disease) Code(s): I25.10 - ATHSCL HEART DISEASE OF [place] CORONARY ARTERY W/O ANG PCTRS Status: Acute Qualifiers: Coronary Disease-Associated Artery/Lesion type: [place] artery [place] vs. transplanted heart: [place] heart Comment: multivessel disease cabg- 05/12 (2) Chest pain Code(s): R07.9 - CHEST PAIN, UNSPECIFIED Status: Acute Qualifiers: Chest pain type: chest pain due to myocardial ischemia (3) DM type 2 (diabetes mellitus, type 2) Status: Chronic Qualifiers: Diabetes mellitus complication status: with unspecified complications Diabetes mellitus buttermilk drier operator insulin use: with senior care use Qualified Code(s) : E11.8 - Type 2 diabetes mellitus with unspecified complications; Z79.4 - termite renewal inspector (current) use of insulin; Z79.4 - long-term (current) use of insulin; Z79.4 - termite renewal inspector (current) use of insulin; Z79.4 - termite renewal inspector (current) use of insulin (4) Dyslipidemia Code(s): E78.5 - HYPERLIPIDEMIA, UNSPECIFIED Status: Chronic (5) HTN (hypertension) Code(s): I10 - ESSENTIAL (PRIMARY) HYPERTENSION Status: Chronic Qualifiers: Hypertension type: essential hypertension Qualified Code(s): I10 - Essential (primary) hypertension (6) Obesity (BMI 30-39.9) Code(s): E66.9 - OBESITY, UNSPECIFIED Status: Chronic - Plan * doing well * f/u cvts plan
[2017-05-13 14:25] VITALS: BMI 36.1
--- NOTE | 2017-05-13 16:08 | EKG ---
Test Reason : Blood Pressure : / mmHG Vent. Rate : 084 BPM Atrial Rate : 084 BPM P-R Int : 180 ms QRS Dur : 106 ms QT Int : 438 ms P-R-T Axes : 037 -60 091 degrees QTc Int : 517 ms Normal sinus rhythm Left axis deviation Left ventricular hypertrophy with repolarization abnormality Possible Lateral infarct , age undetermined Prolonged QT Abnormal ECG When compared with ECG of 09-MAY-2017 09:48, (Unconfirmed) Significant changes have occurred Confirmed by DR. Lisa BRENNAN ([id number]) on 05/13/2017 4:07:58 PM Referred By: ROBBY Confirmed By:DR. Lisa BRENNAN
[2017-05-13] MEDS ORDERED: Amiodarone HCl 150 MG, Admixture Fee 1 EACH in Dextrose 5% in Water 100 ML IVPB SCH ×3 (16:15)
--- NOTE | 2017-05-13 16:16 | EKG ---
Test Reason : Blood Pressure : / mmHG Vent. Rate : 092 BPM Atrial Rate : 394 BPM P-R Int : 000 ms QRS Dur : 086 ms QT Int : 352 ms P-R-T Axes : 000 -33 073 degrees QTc Int : 435 ms Atrial fibrillation Left axis deviation Nonspecific ST and T wave abnormality , probably digitalis effect Abnormal ECG When compared with ECG of 12-MAY-2017 17:01, (Unconfirmed) Atrial fibrillation has replaced Sinus rhythm QRS duration has decreased Borderline criteria for Lateral infarct are no longer Present T wave amplitude has decreased in Inferior leads QT has shortened Confirmed by DR. Lisa BRENNAN ([id number]) on 05/13/2017 4:16:18 PM Referred By: PERICO Confirmed By:DR. Lisa BRENNAN
[2017-05-13] MEDS: D5 1/2 NS w/20 mEq KCL 1,000 ML IV SCH (17:06)
[2017-05-13] MEDS: Amiodarone HCl 450 MG in Dextrose 5% in Water 250 ML IVPB SCH ×2 (17:22)
[2017-05-13] MEDS ORDERED: Insulin Regular 300 UNITS/3 ML VIAL SC SCH (22:45)
[2017-05-13] MEDS ORDERED: HumaLOG 300 UNITS/3 ML VIAL SC SCH (22:45)
[2017-05-14] MEDS: Norepinephrine 8 MG/0.9% NS 250 ML IVPB PRN (01:13)
[2017-05-14] MEDS: Amiodarone HCl 450 MG in Dextrose 5% in Water 250 ML IVPB SCH ×4 (02:47→18:24)
[2017-05-14 04:28] LABS: #Basophils 0.1 thou/uL (0.0-0.2); #Eosinphils 0.3 thou/uL (0.0-0.7); #Lymphocytes 4.6 thou/uL (1.20-3.40); #Monocytes 1.2 thou/uL (0.11-0.59); #Neutrophils 9.5 thou/uL (1.40-6.50); %Basophils 0.4 % (0.0-1.0); %Eosinophils 1.9 % (0.0-10.0); %Lymphocytes 29.2 % (21.0-51.0); %Monocytes 7.7 % (0.0-10.0); Hematocrit 32.9 % (42.0-52.0); Mean Platelet Volume 7.4 fL (7.4-10.4); Red Blood Cell (RBC) Count 3.37 mill/uL (4.70-6.10); White Blood Cell (WBC) Count 15.7 thou/uL (4.8-10.8)
[2017-05-14 04:38] LABS: Anion Gap 10 mmol/L (10-20); BUN (Urea Nitrogen) 11 mg/dL (8.4-25.7); Calc. Creatinine Clearance 115 mL/min (70-130); Calcium 8.1 mg/dL (7.8-10.44); Carbon Dioxide 27 mmol/L (23-31); Chloride 101 mmol/L (98-107); Estimated GFR-MDRD 86
[2017-05-14] MEDS: Ketorolac Tromethamine 30 MG/ML VIAL IVP SCH ×4 (05:30→23:43)
[2017-05-14] MEDS: Insulin Regular 300 UNITS/3 ML VIAL SC PRN ×4 (06:27→20:05)
[2017-05-14] MEDS: Aspirin 325 MG TAB PO SCH (08:18)
[2017-05-14] MEDS: Allopurinol 100 MG TAB PO SCH (08:18)
[2017-05-14] MEDS: Magnesium 2 GM/NS 0.9% 50 ML 2 GM in Premix Bag 1 BAG IVPB SCH (08:18)
[2017-05-14] MEDS: Famotidine 20 MG TAB PO SCH ×2 (08:18→20:02)
--- NOTE | 2017-05-14 08:26 | RAD ---
CHEST ONE VIEW: HISTORY: Heart surgery. Followup. COMPARISON: 05/13/2017 FINDINGS: The cardiac silhouette remains magnified and enlarged. The pulmonary vasculature is unremarkable. The mediastinum is midline with a radiopaque drain and postoperative changes evident. A left thorac ostomy tube and a right subclavian central venous catheter remain in place. Atelectasis at the left lung base is unchanged. concrete tile machine operator leads overly the chest. IMPRESSION: Stable postoperative appearance of the chest. POS: [facility]
[2017-05-14] MEDS ORDERED: INSULIN GLARGINE HUM REC ANLOG 60 UNIT SQ SCH (08:45)
[2017-05-14] MEDS: Insulin Detemir 100 UNITS/ML 60 UNITS in Pre-Filled Syringe 1 EACH SC SCH (08:50)
[2017-05-14] MEDS: D5 1/2 NS w/20 mEq KCL 1,000 ML IV SCH (11:18)
--- NOTE | 2017-05-14 14:16 | PDOC.PN ---
- Subjective Encounter Start Date: 05/14/17 Encounter Start Time: 14:15 Patient seen and examined. No new complaints. No overnight events - Objective MAR Reviewed: Yes Vital Signs & Weight: Vital Signs (12 hours) Temp Pulse Resp Pulse Ox 05/14/17 12:00 98.7 F 05/14/17 09:00 99 F 05/14/17 08:30 99 F 83 17 95 05/14/17 08:07 95 05/14/17 08:00 99 F 05/14/17 04:00 97.9 F Weight Admit Weight 235 lb Weight 238 lb 1.588 oz Most Recent Monitor Data Heart Rate from ECG 87 NIBP 100/62 NIBP BP-Mean 81 Respiration from ECG 20 SpO2 97 I&O: 05/13/17 05/14/17 05/15/17 06:59 06:59 05:59 Intake Total 1698.7 2344.9 450 Output Total 1185 2225 40 Balance 513.7 119.9 410 Result Diagrams: 05/14/17 03:55 05/14/17 03:55 Additional Labs: Accuchecks 05/14/17 05/14/17 05/13/17 11:30 06:22 22:07 POC Glucose 256 H 246 H 325 H 05/13/17 05/13/17 20:49 17:16 POC Glucose 383 H 274 H Phys Exam - Physical Examination Constitutional: NAD HEENT: PERRLA Neck: no JVD Respiratory: no wheezing lt side chest tube in place Cardiovascular: no significant murmur Gastrointestinal: non-tender Musculoskeletal: pulses present Neurological: moves all 4 limbs Psychiatric: A&O x 3 Dx/Plan (1) CAD (coronary artery disease) Code(s): I25.10 - ATHSCL HEART DISEASE OF [place] CORONARY ARTERY W/O ANG PCTRS Status: Acute Qualifiers: Coronary Disease-Associated Artery/Lesion type: [place] artery [place] vs. transplanted heart: [place] heart Comment: multivessel disease cabg- 05/12 (2) Chest pain Code(s): R07.9 - CHEST PAIN, UNSPECIFIED Status: Acute Qualifiers: Chest pain type: chest pain due to myocardial ischemia (3) DM type 2 (diabetes mellitus, type 2) Status: Chronic Qualifiers: Diabetes mellitus complication status: with unspecified complications Diabetes mellitus detention insulin use: with detention use Qualified Code(s) : E11.8 - Type 2 diabetes mellitus with unspecified complications; Z79.4 - care home (current) use of insulin; Z79.4 - care home (current) use of insulin; Z79.4 - care home (current) use of insulin; Z79.4 - termite control servicer (current) use of insulin (4) Dyslipidemia Code(s): E78.5 - HYPERLIPIDEMIA, UNSPECIFIED Status: Chronic (5) HTN (hypertension) Code(s): I10 - ESSENTIAL (PRIMARY) HYPERTENSION Status: Chronic Qualifiers: Hypertension type: essential hypertension Qualified Code(s): I10 - Essential (primary) hypertension (6) Obesity (BMI 30-39.9) Code(s): E66.9 - OBESITY, UNSPECIFIED Status: Chronic - Plan * f/u cvts and card plan * continue current rx
[2017-05-14] MEDS ORDERED: Amiodarone HCl 150 MG, Admixture Fee 1 EACH in Dextrose 5% in Water 100 ML IVPB SCH ×3 (14:45)
[2017-05-14] MEDS: Digoxin 0.5 MG/2 ML AMP SLOW IVP SCH ×2 (15:11→16:20)
[2017-05-14] MEDS ORDERED: Digoxin 0.25 MG TAB PO SCH (19:00)
[2017-05-15 05:22] LABS: #Basophils 0.1 thou/uL (0.0-0.2); #Eosinphils 0.3 thou/uL (0.0-0.7); #Monocytes 0.7 thou/uL (0.11-0.59); #Neutrophils 6.9 thou/uL (1.40-6.50); %Basophils 0.5 % (0.0-1.0); %Eosinophils 2.7 % (0.0-10.0); %Lymphocytes 27.2 % (21.0-51.0); %Monocytes 6.5 % (0.0-10.0); Hematocrit 30.6 % (42.0-52.0); Mean Platelet Volume 7.3 fL (7.4-10.4); Red Blood Cell (RBC) Count 3.14 mill/uL (4.70-6.10); White Blood Cell (WBC) Count 10.9 thou/uL (4.8-10.8)
[2017-05-15 05:39] LABS: Anion Gap 12 mmol/L (10-20); BUN (Urea Nitrogen) 14 mg/dL (8.4-25.7); Calc. Creatinine Clearance 113 mL/min (70-130); Calcium 8.5 mg/dL (7.8-10.44); Carbon Dioxide 27 mmol/L (23-31); Chloride 100 mmol/L (98-107); Estimated GFR-MDRD 84
[2017-05-15] MEDS: Ketorolac Tromethamine 30 MG/ML VIAL IVP SCH ×3 (06:01→17:30)
[2017-05-15] MEDS: Insulin Regular 300 UNITS/3 ML VIAL SC PRN ×4 (06:05→21:33)
--- NOTE | 2017-05-15 08:01 | RAD ---
CHEST 1 VIEW: Date: 05/15/17 HISTORY: Heart surgery. Follow-up. COMPARISON: 05/14/17. FINDINGS: The cardiac silhouette is magnified and enlarged. Pulmonary vasculature is unremarkable. Mediastinum is midline with postoperative changes and a right subclavian central venous catheter. Atelectasis a t the left base remains. surveillance system monitor leads overlie the chest. IMPRESSION: Stable postoperative appearance of the chest. POS: [facility]
[2017-05-15] MEDS: Insulin Detemir 100 UNITS/ML 60 UNITS in Pre-Filled Syringe 1 EACH SC SCH (08:48)
[2017-05-15] MEDS: Aspirin 325 MG TAB PO SCH (08:49)
[2017-05-15] MEDS: Famotidine 20 MG TAB PO SCH ×2 (08:49→21:29)
[2017-05-15] MEDS: Allopurinol 100 MG TAB PO SCH (08:49)
[2017-05-15] MEDS ORDERED: Digoxin 0.125 MG TAB PO SCH (09:00)
[2017-05-15] MEDS ORDERED: Amiodarone 200 MG TAB PO SCH (10:00)
--- NOTE | 2017-05-15 10:26 | PDOC.PN ---
- Subjective Encounter Start Date: 05/15/17 Encounter Start Time: 10:25 Patient seen and examined. No new complaints. No overnight events - Objective MAR Reviewed: Yes Vital Signs & Weight: Vital Signs (12 hours) Temp Pulse Resp Pulse Ox 05/15/17 08:49 70 05/15/17 08:00 98 F 78 16 96 05/15/17 07:00 98 F 05/15/17 04:00 98.8 F 05/15/17 00:00 98.7 F Weight Admit Weight 235 lb Weight 3.795 oz Most Recent Monitor Data Heart Rate from ECG 78 NIBP 116/56 NIBP BP-Mean 80 Respiration from ECG 19 SpO2 97 I&O: 05/14/17 05/15/17 05/16/17 07:59 06:59 06:59 Intake Total 1048 Output Total 0 Balance 1048 Result Diagrams: 05/15/17 05:05 05/15/17 05:05 Additional Labs: Accuchecks 05/14/17 05/14/17 05/14/17 20:05 16:16 11:30 POC Glucose 278 H 245 H 256 H Phys Exam - Physical Examination Constitutional: NAD HEENT: PERRLA Neck: no JVD decreased bs at bases Cardiovascular: no significant murmur Gastrointestinal: non-tender Musculoskeletal: pulses present Neurological: moves all 4 limbs Psychiatric: A&O x 3 Dx/Plan (1) CAD (coronary artery disease) Code(s): I25.10 - ATHSCL HEART DISEASE OF [place] CORONARY ARTERY W/O ANG PCTRS Status: Acute Qualifiers: Coronary Disease-Associated Artery/Lesion type: [place] artery [place] vs. transplanted heart: [place] heart Comment: multivessel disease cabg- 05/12 (2) Chest pain Code(s): R07.9 - CHEST PAIN, UNSPECIFIED Status: Acute Qualifiers: Chest pain type: chest pain due to myocardial ischemia (3) DM type 2 (diabetes mellitus, type 2) Status: Chronic Qualifiers: Diabetes mellitus complication status: with unspecified complications Diabetes mellitus correction insulin use: with exterminator helper use Qualified Code(s) : E11.8 - Type 2 diabetes mellitus with unspecified complications; Z79.4 - FDC (current) use of insulin; Z79.4 - FDC (current) use of insulin; Z79.4 - exterminator helper (current) use of insulin; Z79.4 - FDC (current) use of insulin (4) Dyslipidemia Code(s): E78.5 - HYPERLIPIDEMIA, UNSPECIFIED Status: Chronic (5) HTN (hypertension) Code(s): I10 - ESSENTIAL (PRIMARY) HYPERTENSION Status: Chronic Qualifiers: Hypertension type: essential hypertension Qualified Code(s): I10 - Essential (primary) hypertension (6) Obesity (BMI 30-39.9) Code(s): E66.9 - OBESITY, UNSPECIFIED Status: Chronic - Plan * f/u cvts and card plan * continue current rx
[2017-05-15] MEDS: Amiodarone 200 MG TAB PO SCH ×2 (14:38→21:29)
[2017-05-15 15:27] VITALS: BP 156/80
[2017-05-15] MEDS ORDERED: Atorvastatin Calcium 40 MG TAB PO SCH (21:00)
[2017-05-16 04:37] LABS: #Eosinphils 0.4 thou/uL (0.0-0.7); #Lymphocytes 1.8 thou/uL (1.20-3.40); #Monocytes 0.6 thou/uL (0.11-0.59); #Neutrophils 5.5 thou/uL (1.40-6.50); %Basophils 0.3 % (0.0-1.0); %Eosinophils 4.4 % (0.0-10.0); %Lymphocytes 21.6 % (21.0-51.0); %Monocytes 6.8 % (0.0-10.0); Hematocrit 31.5 % (42.0-52.0); Red Blood Cell (RBC) Count 3.27 mill/uL (4.70-6.10); White Blood Cell (WBC) Count 8.2 thou/uL (4.8-10.8)
[2017-05-16 04:51] LABS: Anion Gap 13 mmol/L (10-20); BUN (Urea Nitrogen) 14 mg/dL (8.4-25.7); Calc. Creatinine Clearance 0 mL/min (70-130); Calcium 8.8 mg/dL (7.8-10.44); Carbon Dioxide 27 mmol/L (23-31); Chloride 100 mmol/L (98-107); Estimated GFR-MDRD 88
[2017-05-16 09:23] VITALS: TEMP 98.8
--- NOTE | 2017-05-16 10:20 | DIS ---
DATE OF ADMISSION: 05/09/2017 DATE OF DISCHARGE: 05/16/2017 DIAGNOSES: 1. Diabetes mellitus. 2. Hypertension. 3. Glaucoma. 4. Dyslipidemia. 5. Coronary artery disease. 6. Postoperative atrial fibrillation. PROCEDURES: 1. Cardiac catheterization. 2. Coronary artery bypass grafting x5 - 1. Left internal mammary artery to LAD. 2. Reversed saph enous vein to ramus, obtuse marginal and diagonal and posterior descending artery. DESCRIPTION OF HOSPITAL STAY: Mr. Whitt is a 72-year-old gentleman who was admitted to the [facility] with approximately 2 weeks of chest pain, heaviness and shortness of breath. He underwent cardiac catheterization revealing severe 3-vessel disease. He was taken to the operating room and underwen t coronary artery bypass grafting on 05/12/2017 as above. Postoperatively, he has done well. He chamorro s had short bout of atrial fibrillation which was controlled with IV amiodarone and digoxin. He has been converted to p.o. amiodarone at this time. He has remained in sinus rhythm with good hemodyna mics. At the time of discharge, he is ambulatory, tolerating a regular diet, having good bowel and bladder function. Incisions are clean and dry without evidence of infection. DISCHARGE MEDICATIONS: Include, 1. Aspirin 325 mg every day. 2. Allopurinol per his home regimen. 3. Amiodarone 400 mg t.i.d. for 1 week, converting into 400 mg b.i.d. 4. Lipitor 40 mg at bedtime. 5. Farxiga 5 mg every day. 6. Indomethacin 50 mg b.i.d. 7. Insulin 60 units daily. 8. [place] 5/325 1-2 q.6 h. p.r.n. pain.
--- NOTE | 2017-05-16 10:30 | PDOC.PN ---
- Subjective Encounter Start Date: 05/16/17 Encounter Start Time: 10:29 Patient seen and examined. No new complaints. No overnight events - Objective MAR Reviewed: Yes Vital Signs & Weight: Vital Signs (12 hours) Temp Pulse Resp Pulse Ox 05/16/17 08:00 98.8 F 78 22 H 100 05/16/17 04:00 98.7 F 05/16/17 00:00 98.7 F Weight Admit Weight 235 lb Weight 235 lb 14.314 oz Most Recent Monitor Data Heart Rate from ECG 80 NIBP 132/68 NIBP BP-Mean 107 Respiration from ECG 20 SpO2 97 I&O: 05/15/17 05/16/17 05/17/17 06:59 06:59 06:59 Intake Total 2288 350 Output Total 3150 Balance -862 350 Result Diagrams: 05/16/17 04:15 05/16/17 04:15 Additional Labs: Accuchecks 05/15/17 05/15/17 05/15/17 21:33 15:17 10:57 POC Glucose 238 H 179 H 198 H Phys Exam - Physical Examination Constitutional: NAD HEENT: PERRLA Neck: no JVD Respiratory: no rales Cardiovascular: no significant murmur Gastrointestinal: non-tender Musculoskeletal: pulses present Neurological: moves all 4 limbs Psychiatric: A&O x 3 Dx/Plan (1) CAD (coronary artery disease) Code(s): I25.10 - ATHSCL HEART DISEASE OF [place] CORONARY ARTERY W/O ANG PCTRS Status: Chronic Qualifiers: Coronary Disease-Associated Artery/Lesion type: [place] artery [place] vs. transplanted heart: [place] heart Comment: multivessel disease cabg- 05/12 (2) Chest pain Code(s): R07.9 - CHEST PAIN, UNSPECIFIED Status: Resolved Qualifiers: Chest pain type: chest pain due to myocardial ischemia (3) DM type 2 (diabetes mellitus, type 2) Status: Chronic Qualifiers: Diabetes mellitus complication status: with unspecified complications Diabetes mellitus dedicated intermodal truck driver insulin use: with [facility] use Qualified Code(s) : E11.8 - Type 2 diabetes mellitus with unspecified complications; Z79.4 - ad terminal makeup operator (current) use of insulin; Z79.4 - senior living (current) use of insulin; Z79.4 - ad terminal makeup operator (current) use of insulin; Z79.4 - senior living (current) use of insulin (4) Dyslipidemia Code(s): E78.5 - HYPERLIPIDEMIA, UNSPECIFIED Status: Chronic (5) HTN (hypertension) Code(s): I10 - ESSENTIAL (PRIMARY) HYPERTENSION Status: Chronic Qualifiers: Hypertension type: essential hypertension Qualified Code(s): I10 - Essential (primary) hypertension (6) Obesity (BMI 30-39.9) Code(s): E66.9 - OBESITY, UNSPECIFIED Status: Chronic - Plan * doing well * d/c home * out pt f/u with pcp and card and cvts
--- NOTE | 2017-05-21 14:17 | EKG ---
Test Reason : Blood Pressure : / mmHG Vent. Rate : 055 BPM Atrial Rate : 055 BPM P-R Int : 188 ms QRS Dur : 080 ms QT Int : 428 ms P-R-T Axes : 023 -37 059 degrees QTc Int : 409 ms Sinus bradycardia Left axis deviation Left ventricular hypertrophy with repolarization abnormality Cannot rule out Septal infarct , age undetermined Abnormal ECG Confirmed by ALEISHA LAMBERT ([id number]), editor managing newspaper ALEXIS IRIZARRY ([id number]) on 05/21/2017 2:16:56 PM Referred By: Confirmed By:ALEISHA LAMBERT
== END 2017-05-16 10:01 | disposition home or self-care (01) | DRG 233 ==
LOC: ERS 09:44 → 2SW 12:41 → OBSVTOIN 12:41 → 2NO 05-10 13:21 → CCU 05-12 15:11
PROVIDERS: ADMIT Internal Medicine; ATTEND Internal Medicine
PROC: 4A023N7 Measurement of Cardiac Sampling and Pressure, Left Heart, Percutaneous Approach (ICD-10-PCS; 2017-05-10)
PROC: B2111ZZ Fluoroscopy of Multiple Coronary Arteries using Low Osmolar Contrast (ICD-10-PCS; 2017-05-10)
PROC: B2151ZZ Fluoroscopy of Left Heart using Low Osmolar Contrast (ICD-10-PCS; 2017-05-10)
PROC: 02100Z9 Bypass Coronary Artery, One Artery from Left Internal Mammary, Open Approach (ICD-10-PCS; principal; 2017-05-12)
PROC: 021309W Bypass Coronary Artery, Four or More Arteries from Aorta with Autologous Venous Tissue, Open Approach (ICD-10-PCS; 2017-05-12)
PROC: 06BQ4ZZ Excision of Left Saphenous Vein, Percutaneous Endoscopic Approach (ICD-10-PCS; 2017-05-12)
PROC: 5A1221Z Performance of Cardiac Output, Continuous (ICD-10-PCS; 2017-05-12)
DX: I25.10 Atherosclerotic heart disease of native coronary artery without angina pectoris (principal); I21.4 Non-ST elevation (NSTEMI) myocardial infarction; E11.22 Type 2 diabetes mellitus with diabetic chronic kidney disease; I97.89 Other postprocedural complications and disorders of the circulatory system, not elsewhere classified; Z87.891 Personal history of nicotine dependence; I12.9 Hypertensive chronic kidney disease with stage 1 through stage 4 chronic kidney disease, or unspecified chronic kidney disease; N18.2 Chronic kidney disease, stage 2 (mild); Z79.4 Long term (current) use of insulin; Z79.84 Long term (current) use of oral hypoglycemic drugs; E78.5 Hyperlipidemia, unspecified; E66.9 Obesity, unspecified; Z68.35 Body mass index [BMI] 35.0-35.9, adult; H40.9 Unspecified glaucoma
CPT/HCPCS: 36415; 36416; 71010; 78451; 80048; 80053; 80061; 82550; 82553; 82805; 83036; 83690; 83880; 84484; 85025; 85610; 85730; 86850; 86900; 86901; 90471; 90732; 93005; 93010; 93306; 93458; 93798; 94002; 94640; 94760; 99152; A4216; A9500; G0009; J0282; J1160; J1642; J1644; J1650; J1815; J1885; J2250; J2270; J2405; J2704; J3010; J3475; J3480; J7050; J7070; J7620; P9045; S0028